=== PATIENT | male | born 1945 | race Caucasian/White ===

== ENCOUNTER 2018-02-27 09:34 | Inpatient (IN) | payer OTHER ==
[2018-02-27] MEDS ORDERED: CEFTRIAXONE 1 GM PDS 1 GM in SODIUM CHLORIDE 0.9% 50 ML 50 ML IV ONE ×2 (09:54→09:59)
[2018-02-27] MEDS ORDERED: CEFTRIAXONE 1 GM PDS ONE ×2 (10:23→23:06)
[2018-02-27 10:34] LABS: BASOPHILS % (AUTO) 1 % (0-3); EOSINOPHILS % (AUTO) 1 % (0-9); HEMATOCRIT 52 % (39-53); HEMOGLOBIN 16.4 gm/dl (13.5-17.7); LYMPHOCYTES % (AUTO) 19.5 % (10-50); MEAN CORPUSCULAR HEMOGLOBIN 28.1 pg (27.0-32.0); MEAN CORPUSCULAR HGB CONC 31.4 gm/dl (32.0-36.0); MEAN CORPUSCULAR VOLUME 89 fL (80-100); MONOCYTES % (AUTO) 9.5 % (0-12)
[2018-02-27 10:43] LABS: ALBUMIN 2.8 gm/dl (3.4-5.0); BILIRUBIN,TOTAL 0.4 mg/dl (0.2-1.0); CALCIUM 10.2 mg/dl (8.5-10.1); CARBON DIOXIDE 30.4 mEq/L (21-32); CREATININE 2.54 mg/dl (0.80-1.30); POTASSIUM 4.4 mMol/L (3.5-5.1); TOTAL PROTEIN 7.2 gm/dl (6.4-8.2)
[2018-02-27] MEDS ORDERED: NITROGLYCERIN 0.4 MG TAB SL PRN (12:38)
[2018-02-27] MEDS ORDERED: SENNOSIDES A AND B 8.6 MG TAB PO PRN (12:38)
[2018-02-27] MEDS ORDERED: MAGNESIUM HYDROXIDE 30 ML SUS PO PRN (12:38)
[2018-02-27] MEDS ORDERED: LIDOCAINE 4% CREAM TP PRN (15:00)
[2018-02-27] MEDS: FUROSEMIDE 20 MG TAB PO SCH (15:27)
[2018-02-27] MEDS: TRAMADOL HYDROCHLORIDE 50 MG TAB PO PRN ×2 (15:29→21:29)
[2018-02-27] MEDS: ACETAMINOPHEN 500 MG 500 MG TAB PO PRN (17:32)
[2018-02-27] MEDS: TAMSULOSIN HYDROCHLORIDE 0.4 MG CAP PO SCH (18:37)
[2018-02-27] MEDS: METOPROLOL SUCCINATE 50 MG ER TAB PO SCH (18:38)
[2018-02-27] MEDS: NOVOLOG FLEXPEN SC SCH ×2 (18:48→21:43)
[2018-02-27] MEDS: AMITRIPTYLINE 25 MG TAB PO SCH (21:29)
[2018-02-27] MEDS ORDERED: SODIUM CHLORIDE 0.9% 50 ML 50 ML IV ONE (23:06)
[2018-02-27] MEDS: CEFTRIAXONE 1 GM PDS 1 GM in SODIUM CHLORIDE 0.9% 50 ML 50 ML IV SCH (23:23)
[2018-02-28] MEDS: ACETAMINOPHEN 500 MG 500 MG TAB PO PRN ×3 (02:59→20:20)
[2018-02-28] MEDS ORDERED: SODIUM CHLORIDE 0.9% FLUSH 10 ML SOL IV PRN (06:00)
[2018-02-28 07:27] LABS: BASOPHILS % (AUTO) 1 % (0-3); EOSINOPHILS % (AUTO) 2 % (0-9); HEMATOCRIT 48 % (39-53); LYMPHOCYTES % (AUTO) 25.3 % (10-50); MEAN CORPUSCULAR HEMOGLOBIN 28.2 pg (27.0-32.0); MEAN CORPUSCULAR HGB CONC 31.5 gm/dl (32.0-36.0); MEAN CORPUSCULAR VOLUME 90 fL (80-100); MONOCYTES % (AUTO) 10.2 % (0-12); NEUTROPHILS % (AUTO) 61.8 % (37-80)
[2018-02-28 07:30] LABS: CALCIUM 9.3 mg/dl (8.5-10.1); CREATININE 2.44 mg/dl (0.80-1.30); POTASSIUM 4.5 mMol/L (3.5-5.1)
[2018-02-28 07:45] LABS: HEMOGLOBIN A1C 8.8 % (4.8-6.0)
[2018-02-28] MEDS: NOVOLOG FLEXPEN SC SCH ×4 (08:09→20:12)
[2018-02-28] MEDS: GLIPIZIDE 5 MG TAB PO SCH (08:10)
[2018-02-28] MEDS: AMLODIPINE 5 MG TAB PO SCH (08:11)
[2018-02-28] MEDS: FUROSEMIDE 20 MG TAB PO SCH ×2 (08:11→11:49)
[2018-02-28] MEDS: SENNOSIDES A AND B 8.6 MG TAB PO SCH (08:12)
[2018-02-28] MEDS: CLOPIDOGREL 75 MG TAB PO SCH (08:12)
[2018-02-28] MEDS: ALLOPURINOL 100 MG TAB PO SCH (08:13)
[2018-02-28] MEDS: ENOXAPARIN 40 MG SOL SC SCH (08:16)
[2018-02-28] MEDS: MULTIVITAMIN2 1 EA TAB PO SCH (08:16)
[2018-02-28] MEDS ORDERED: SODIUM CHLORIDE 0.9% 50 ML 50 ML IV ONE ×2 (10:36→22:49)
[2018-02-28] MEDS ORDERED: CEFTRIAXONE 1 GM PDS ONE ×2 (10:36→22:49)
[2018-02-28] MEDS: SODIUM CHLORIDE 0.9% FLUSH 10 ML SOL IV SCH ×3 (10:53→23:25)
[2018-02-28] MEDS: CEFTRIAXONE 1 GM PDS 1 GM in SODIUM CHLORIDE 0.9% 50 ML 50 ML IV SCH ×2 (10:54→22:50)
[2018-02-28] MEDS: TAMSULOSIN HYDROCHLORIDE 0.4 MG CAP PO SCH (17:27)
[2018-02-28] MEDS: METOPROLOL SUCCINATE 50 MG ER TAB PO SCH ×2 (17:28→18:43)
[2018-02-28] MEDS: AMITRIPTYLINE 25 MG TAB PO SCH (20:11)
[2018-02-28] MEDS: TRAMADOL HYDROCHLORIDE 50 MG TAB PO PRN (22:43)
[2018-02-28 23:27] VITALS: TEMP 97.8
[2018-02-28 23:33] VITALS: PULSE 65
[2018-03-01] MEDS: ACETAMINOPHEN 500 MG 500 MG TAB PO PRN (02:04)
[2018-03-01] MEDS: TRAMADOL HYDROCHLORIDE 50 MG TAB PO PRN (05:50)
[2018-03-01 07:23] VITALS: BP 160/73; RESP 18; O2SAT 94
[2018-03-01] MEDS: NOVOLOG FLEXPEN SC SCH (08:48)
[2018-03-01] MEDS: GLIPIZIDE 5 MG TAB PO SCH (08:54)
[2018-03-01] MEDS: AMLODIPINE 5 MG TAB PO SCH (08:55)
[2018-03-01] MEDS: FUROSEMIDE 20 MG TAB PO SCH (08:55)
[2018-03-01] MEDS: CLOPIDOGREL 75 MG TAB PO SCH (08:56)
[2018-03-01] MEDS: SENNOSIDES A AND B 8.6 MG TAB PO SCH (08:56)
[2018-03-01] MEDS: MULTIVITAMIN2 1 EA TAB PO SCH (08:57)
[2018-03-01] MEDS: ALLOPURINOL 100 MG TAB PO SCH (08:57)
[2018-03-01] MEDS: ENOXAPARIN 40 MG SOL SC SCH (09:01)
== END 2018-03-01 10:05 | DRG 603 ==
LOC: ED 09:34 → ACUTE CARE 12:38 → UNDOADMIN 12:38 → ACUTE CARE 13:05
PROVIDERS: ADMIT Emergency Medicine; ATTEND Emergency Medicine
DX: M79.605 Pain in left leg (principal); L03.115 Cellulitis of right lower limb; M79.604 Pain in right leg; N18.4 Chronic kidney disease, stage 4 (severe); I87.2 Venous insufficiency (chronic) (peripheral); I10 Essential (primary) hypertension; E11.9 Type 2 diabetes mellitus without complications; E03.9 Hypothyroidism, unspecified; L97.521 Non-pressure chronic ulcer of other part of left foot limited to breakdown of skin; L97.511 Non-pressure chronic ulcer of other part of right foot limited to breakdown of skin; R60.9 Edema, unspecified; G25.81 Restless legs syndrome
CPT/HCPCS: 36415; 80048; 80053; 82962; 83036; 85025; 87040; 87070; 87077; 87186; 87205; 96365; 99232; 99283; 99285; J0696; J1650; A6232; A6446; A9270-GY; J1815